=== PATIENT | male | born 1945 | race Caucasian/White ===

== ENCOUNTER 2019-08-13 17:48 | Inpatient (IN) | payer OTHER ==
[~2019-08-13] VITALS: Ht 193 cm; Wt 122.5 kg
[2019-08-13] MEDS ORDERED: SIMVASTATIN5 MG (17:57)
[2019-08-13] MEDS ORDERED: ALTACE1.25 MG (17:57)
[2019-08-13] MEDS ORDERED: XARELTO10 MG (17:57)
[2019-08-13] MEDS ORDERED: BISOPROLOL FUMAR5 MG (17:58)
--- NOTE | 2019-08-13 17:59 | NUR ---
SE RECIBE PTE ALERTA Y ORIENTADO X 3 DE CRUCERO EN COMPANIA DE FAMILIAR Y PARAMEDICOS. PTE INDICA QUE PRESENTA CELLULITIS EN PIERNA DERECHA. SE OBSERVA PIERNA DERECHA CON EDEMA Y ERITEMA. PTE INDICA LA PIERNA COMENZO CON ERITEMA EL BEV DE ERIC.
--- NOTE | 2019-08-13 18:51 | NUR ---
SE ORIENTA PTE SOBRE SAM DE MUESTRAS LAS CUALES SE EXTRAEN BAJO MEDIDAS ASEPTICAS.SE NOTIFICA PLACA PENDIENTE.
--- NOTE | 2019-08-13 23:00 | NUR ---
SE RECIBE DE TURNO ANTERIOR MASCULINO DE 74 ANOS,ALERTA,ORIENTADO EN SCOT DARLIN ESFERAS,DESCANSANDO EN CAMA NIVEL MAS BAJO,BARANDAS ELEVADAS,FRENOS,SANDERS DE IDENTIFICACION COLOCADOS POR SEGURIDAD. EN COMPANIA DE FAMILIAR. PACIENTE CONSULTADO CON POR RT LEG CELULITIS.
--- NOTE | 2019-08-14 07:20 | NUR ---
SE RECIBE AL PACIENTE DE TURNO ANTERIOR ALERTA Y ORIENTADO EN SCOT DARLIN ESFERAS. ACOMPANADO DE FAMILIAR. PACIENTE CONSULADO CON DR. HANDLEY POR GUILLERMO EN LA KARINA SHAFFER.
[2019-08-16] MEDS ORDERED: INTESTINEX680 M1 PO (08:44)
[2019-08-16] MEDS ORDERED: AMOX-CLAV 875-1 EACH PO (08:44)
[2019-08-16] MEDS ORDERED: PROTONIX40 MG PO (08:44)
== END 2019-08-16 17:33 | disposition home or self-care (01) | DRG 603 ==
LOC: ER 17:48 → MEDI 08-14 11:31
PROVIDERS: ADMIT Internal Medicine
DX: L03.115 Cellulitis of right lower limb (principal); I10 Essential (primary) hypertension; A46 Erysipelas